=== PATIENT | female | born 1960 | race Caucasian/White ===

== ENCOUNTER → 2016-05-31 | Outpatient (REF) | payer OTHER ==
[~2016-05-31] MED LIST: ACET50TA PO; BACL-67 PO; CHILCHW18 PO; GLUCTAB13 PO; TIZA4CAP3 PO; VITA200019 PO; VITATAB21 PO; [UNRECOGNIZED DRUG - CODE] PO
== END ==
LOC: M LAB REF 12:14
PROVIDERS: ATTEND Surgery
DX: B07.9 Viral wart, unspecified (principal)

== ENCOUNTER → 2017-02-14 | Outpatient (CLI) | payer OTHER ==
[~2017-02-14] MED LIST changes: -BACL-67 PO; +BACL1TAB9 PO
--- NOTE | 2017-02-14 10:31 | REPMRS ---
Patient History The patient states she had a clinical breast exam in 01/2017. Patient is postmenopausal and is nulliparous. No known family history of cancer. Took hormonal contraceptives for 12 years beginning at age 40. Digital Woman Screen Mammo: February 14, 2017 - Exam #: [id number] Bilateral CC and MLO view(s) were taken. Technologist: Melody Malhotra, Technologist Prior study comparison: December 20, 2015, digital woman screen mammo performed at [facility] to [facility]. November 02, 2014, digital woman screen mammo performed at [facility] to [facility]. FINDINGS: There are scattered fibroglandular densities. There has been no change in the appearance of the mammogram from the prior studies. There is a mild amount of residual fibroglandular tissue which is fairly symmetric. There is no interval development of dominant mass, architectural distortion, or clustered microcalcification suggestive of malignancy. ASSESSMENT: BI-RADS/ACR category 1 mammogram. Negative. Recommendation Routine screening mammogram in 1 year (for women over age 40). This mammogram was interpreted with the aid of an FDA-approved computer-aided dectection system. Electronically Signed By: Mack Salas MD 02/14/17 [id number]
== END ==
LOC: M WHC 07:58
PROVIDERS: ATTEND Nurse Practitioner Family
DX: Z12.31 Encounter for screening mammogram for malignant neoplasm of breast (principal); Z78.0 Asymptomatic menopausal state; Z92.0 Personal history of contraception

== ENCOUNTER → 2018-02-14 | Outpatient (CLI) | payer OTHER ==
[~2018-02-14] MED LIST changes: +TIZA4CAP PO; -TIZA4CAP3 PO
--- NOTE | 2018-02-14 15:55 | REPMRS ---
Patient History The patient states she had a clinical breast exam in 02/11 No known family history of cancer. Took hormonal contraceptives for 12 years beginning at age 40. Digital Woman Screen Mammo: February 14, 2018 - Exam #: [id number] Bilateral CC and MLO view(s) were taken. Technologist: Malissa Estrada, Technologist Prior study comparison: February 14, 2017, digital woman screen mammo performed at [facility]. December 20, 2015, digital woman screen mammo performed at [facility]. November 02, 2014, digital woman screen mammo performed at [facility]. FINDINGS: There are scattered fibroglandular densities. There has been no change in the appearance of the mammogram from the prior studies. There is a mild amount of scattered fibroglandular density which is fairly symmetric. There is no interval development of dominant mass, architectural distortion, or clustered microcalcification suggestive of malignancy. 3-D tomosynthesis shows no additional findings. Assessment: BI-RADS/ACR category 1 mammogram. Negative. Recommendation Routine screening mammogram of both breasts in 1 year (for women over age 40). This patient's Lifetime Breast Cancer RIsk is estimated at 13.4 %. This mammogram was interpreted with the aid of an FDA-approved computer-aided dectection system. Electronically Signed By: Daniel Coreas MD 02/14/18 [id number]
== END ==
LOC: M WHC 13:21
PROVIDERS: ATTEND Nurse Practitioner Family
DX: Z12.31 Encounter for screening mammogram for malignant neoplasm of breast (principal); Z92.0 Personal history of contraception

== ENCOUNTER → 2018-02-14 | Outpatient (REF) | payer OTHER ==
[2018-02-21 14:14] LABS: HPV HYBRID CAPTURE II Positive (Negative)
== END ==
LOC: M SFHCWAGY 13:54
PROVIDERS: ATTEND Nurse Practitioner Family
DX: Z12.4 Encounter for screening for malignant neoplasm of cervix (principal)

== ENCOUNTER → 2018-03-10 | Outpatient (REF) | payer OTHER | LOC: M SFHCWAGY 15:07 | PROVIDERS: ATTEND Nurse Practitioner Women's Health | DX: R87.810 Cervical high risk human papillomavirus (HPV) DNA test positive (principal); R87.612 Low grade squamous intraepithelial lesion on cytologic smear of cervix (LGSIL) ==

== ENCOUNTER → 2019-03-18 | Outpatient (CLI) | payer OTHER ==
[~2019-03-18] MED LIST changes: -ACET50TA PO; +MAPA500T17 PO
--- NOTE | 2019-03-18 16:43 | REPMRS ---
Patient History The patient states she had a clinical breast exam in 02/2019. Patient is postmenopausal and is nulliparous. Family history of breast cancer at age 79 in mother. Took hormonal contraceptives for 12 years beginning at age 40. Digital Woman Screen Mammo: March 18, 2019 - Exam #: [id number] Bilateral CC and MLO view(s) were taken. Technologist: Melody Malhotra, Technologist Prior study comparison: February 14, 2018, bilateral digital woman screen mammo performed at [facility]. February 14, 2017, digital woman screen mammo performed at [facility]. December 20, 2015, digital woman screen mammo performed at [facility]. FINDINGS: There are scattered fibroglandular densities. There has been no change in the appearance of the mammogram from the prior studies. There is a mild amount of scattered fibroglandular density which is fairly symmetric. There is no interval development of dominant mass, architectural distortion, or grouped microcalcification suggestive of malignancy. 3-D tomosynthesis shows no additional findings. Assessment: BI-RADS/ACR category 1 mammogram. Negative Mammogram. Recommendation Breast MRI of both breasts in 6 months. Routine screening mammogram of both breasts in 1 year (for women over age 40). This patient's Lifetime Breast Cancer Risk is estimated at 23.9 %. Annual screening Breast MRI scanniing is recommended for patient's whose lifetime risk assessment is over 20%. This mammogram was interpreted with the aid of an FDA-approved computer-aided dectection system. Electronically Signed By: Daniel Coreas MD 03/18/19 [id number]
== END ==
LOC: M WHC 11:18
PROVIDERS: ATTEND Nurse Practitioner Family
DX: Z01.419 Encounter for gynecological examination (general) (routine) without abnormal findings (principal)

== ENCOUNTER → 2019-03-18 | Outpatient (REF) | payer OTHER | LOC: M SFHCWAGY 13:35 | PROVIDERS: ATTEND Nurse Practitioner Family | DX: Z12.4 Encounter for screening for malignant neoplasm of cervix (principal) ==

== ENCOUNTER → 2019-03-27 | Outpatient (REF) | payer OTHER | LOC: M PLALAB 14:07 | PROVIDERS: ATTEND Family Medicine | DX: N90.89 Other specified noninflammatory disorders of vulva and perineum (principal) ==

== ENCOUNTER → 2020-03-11 | Outpatient (REF) | payer OTHER | LOC: M SFHCWAGY 13:30 | PROVIDERS: ATTEND Nurse Practitioner Family | DX: Z01.419 Encounter for gynecological examination (general) (routine) without abnormal findings (principal) ==

== ENCOUNTER → 2020-03-11 | Outpatient (CLI) | payer OTHER ==
--- NOTE | 2020-03-11 09:43 | REPMRS ---
Patient History The patient states she had a clinical breast exam in 2020. Family history of breast cancer at age 79 in mother. Took hormonal contraceptives for 12 years beginning at age 40. 3D TOMOSYNTHESIS WAS PERFORMED. Volpara breast density b. Digital Woman Screen Mammo: March 11, 2020 - Exam #: [id number] Bilateral CC and MLO view(s) were taken. Technologist: Alison Ayala, Technologist Prior study comparison: March 18, 2019, bilateral digital woman screen mammo performed at [facility]. February 14, 2018, bilateral digital woman screen mammo performed at [facility]. FINDINGS: There are scattered fibroglandular densities. There has been no change in the appearance of the mammogram from the prior studies. There is a mild amount of residual fibroglandular tissue which is fairly symmetric. There is no interval development of dominant mass, architectural distortion, or clustered microcalcification suggestive of malignancy. Assessment: BI-RADS/ACR category 1 mammogram. Negative Mammogram. Recommendation Routine screening mammogram in 1 year (for women over age 40). This mammogram was interpreted with the aid of an FDA-approved computer-aided dectection system. THE LIFETIME RISK OF BREAST CANCER IS 23.3%, THEREFORE SUPPLEMENTAL SCREENING MRI OF THE BREASTS IS RECOMMENDED IN 6 MONTHS. Electronically Signed By: Mack Salas MD 03/11/20 [id number]
== END ==
LOC: M WHC 08:28
PROVIDERS: ATTEND Nurse Practitioner Family
DX: Z12.31 Encounter for screening mammogram for malignant neoplasm of breast (principal); Z80.3 Family history of malignant neoplasm of breast; Z92.0 Personal history of contraception

== ENCOUNTER → 2021-04-10 | Outpatient (REF) | payer OTHER | LOC: M PLALAB 08:12 | PROVIDERS: ATTEND Advanced Practice Midwife | DX: Z01.419 Encounter for gynecological examination (general) (routine) without abnormal findings (principal); Z77.9 Other contact with and (suspected) exposures hazardous to health; Z12.4 Encounter for screening for malignant neoplasm of cervix ==

== ENCOUNTER → 2021-04-10 | Outpatient (CLI) | payer OTHER, MEDICAID | LOC: M WHC 09:29 | PROVIDERS: ATTEND Advanced Practice Midwife | DX: Z12.31 Encounter for screening mammogram for malignant neoplasm of breast (principal) ==

== ENCOUNTER → 2022-08-07 | Outpatient (CLI) | payer OTHER, MEDICAID | LOC: M WUC 09:14 | PROVIDERS: ATTEND Nurse Practitioner Adult Health | DX: R05.3 Chronic cough (principal) ==

== ENCOUNTER → 2022-10-09 | Outpatient (CLI) | payer OTHER | LOC: M WHC 15:40 | PROVIDERS: ATTEND Advanced Practice Midwife | DX: Z12.31 Encounter for screening mammogram for malignant neoplasm of breast (principal) ==

== ENCOUNTER → 2022-10-09 | Outpatient (REF) | payer OTHER | LOC: M SFHCWAGY 17:30 | PROVIDERS: ATTEND Advanced Practice Midwife | DX: Z12.4 Encounter for screening for malignant neoplasm of cervix (principal) ==

== ENCOUNTER → 2023-11-04 | Outpatient (CLI) | payer OTHER | LOC: M WHC 09:31 | PROVIDERS: ATTEND Advanced Practice Midwife | DX: Z12.31 Encounter for screening mammogram for malignant neoplasm of breast (principal); R92.313 Mammographic fatty tissue density, bilateral breasts ==

== ENCOUNTER → 2023-11-04 | Outpatient (REF) | payer OTHER ==
[2023-11-06 18:59] LABS: HPV APTIMA Not Detected (Not Detected)
== END ==
LOC: M SFHCWAGY 12:59
PROVIDERS: ATTEND Advanced Practice Midwife
DX: Z12.4 Encounter for screening for malignant neoplasm of cervix (principal); Z77.9 Other contact with and (suspected) exposures hazardous to health

== ENCOUNTER 2024-01-07 10:24 | Emergency (ER) | payer OTHER ==
[~2024-01-07] VITALS: Ht 160 cm; Wt 61.8 kg
[2024-01-07] MEDS ORDERED: CETI-24 PO (10:58)
[2024-01-07] MEDS ORDERED: SIMV40TA20 PO (10:58)
[2024-01-07] MEDS ORDERED: AMIT25TA19 PO (10:58)
[2024-01-07 12:24] LABS: BASO # 0.1 10^3/uL (0.0-0.2); BASO % 0.6 % (0.0-1.0); EOS # 0.1 10^3/uL (0.0-0.5); HEMATOCRIT 40.6 % (36.0-47.0); HEMOGLOBIN 13.2 g/dl (12.0-15.5); LYMPH # 2.9 10^3/uL (1.5-5.0); LYMPH % 19.6 % (24.0-44.0); MEAN CORPUSCULAR HEMOGLOBIN 29.6 pg (27.0-33.0); MEAN CORPUSCULAR HGB CONC 32.5 g/dl (32.0-36.5); MONO # 1.1 10^3/uL (0.0-0.8); MONO % 7.5 % (2.0-8.0); NEUTROPHILS # 10.3 10^3/uL (1.5-8.5); NEUTROPHILS % 70.9 % (36.0-66.0); PLATELET COUNT, AUTOMATED 300 10^3/uL (150-450); RED BLOOD COUNT 4.46 10^6/uL (4.00-5.40); WHITE BLOOD COUNT 14.6 10^3/uL (4.0-10.0)
[2024-01-07 12:30] LABS: ERYTHROCYTE SEDIMENTATION RATE 19 mm/hr (0-30)
[2024-01-07 12:49] LABS: BLOOD UREA NITROGEN 15 MG/DL (9-23); CALCIUM LEVEL 9.5 MG/DL (8.3-10.6); CARBON DIOXIDE LEVEL 29 MMOL/L (20-31); CHLORIDE LEVEL 106 MMOL/L (98-107); CREATININE FOR GFR 0.58 MG/DL (0.55-1.30); GLOMERULAR FILTRATION RATE > 60.0 (>45); GLUCOSE, FASTING 117 MG/DL (74-106); POTASSIUM SERUM 4.3 MMOL/L (3.5-5.1); SODIUM LEVEL 141 MMOL/L (136-145)
[2024-01-07] MEDS ORDERED: AMPICILLIN SOD/SULBACTAM SOD 3 GM in DEXTROSE 5% (D5W) ADV/MINI-BAG 50 ML IV ONE (15:40)
[2024-01-07] MEDS: AMPICILLIN SOD/SULBACTAM SOD 3 GM in SODIUM CHLORIDE 0.9% 100ML ADD 100 ML IV ONE (16:09)
[2024-01-07] MEDS: BOOSTRIX VACCINE (TETANUS/DIPHTH/ACEL. PERTUSSIS) 0.5ML SYR IM ONE (16:14)
[2024-01-07] MEDS ORDERED: AMOX875T2 PO (16:47)
[2024-01-07 17:04] VITALS: BP 127/60; TEMP 98.5; O2SAT 96
[2024-01-08] MEDS ORDERED: B-11TAB PO (20:56)
[2024-01-08] MEDS ORDERED: THERTAB19 PO (20:56)
[2024-01-08] MEDS ORDERED: D3 H2000 PO (20:56)
[2024-01-08] MEDS ORDERED: OMEG10002 PO (20:56)
== END 2024-01-07 17:06 | disposition home or self-care (01) ==
LOC: M ED 10:24
DX: L03.114 Cellulitis of left upper limb (principal); S61.452A Open bite of left hand, initial encounter; S61.451A Open bite of right hand, initial encounter; Y92.019 Unspecified place in single-family (private) house as the place of occurrence of the external cause; Y93.9 Activity, unspecified; Y99.9 Unspecified external cause status; W55.03XA Scratched by cat, initial encounter; J45.909 Unspecified asthma, uncomplicated; F12.10 Cannabis abuse, uncomplicated; F10.10 Alcohol abuse, uncomplicated; Z23 Encounter for immunization; Z88.8 Allergy status to other drugs, medicaments and biological substances; Z79.2 Long term (current) use of antibiotics; Z79.810 Long term (current) use of selective estrogen receptor modulators (SERMs); Z79.899 Other long term (current) drug therapy
CPT/HCPCS: 80048; 85025; 85652; 86140; 87040; 90471; 90715; 96374; 99284; J0295

== ENCOUNTER 2024-01-08 18:09 | Observation (INO) | payer OTHER ==
[~2024-01-08] VITALS: Ht 160 cm; Wt 61.1 kg
[~2024-01-08 18:09] MED LIST changes: +AMIT25TA19 PO; +AMOX875T2 PO; +CETI-24 PO; +SIMV40TA20 PO
[2024-01-08 19:08] LABS: BASO # 0.1 10^3/uL (0.0-0.2); BASO % 0.7 % (0.0-1.0); EOS # 0.2 10^3/uL (0.0-0.5); EOS % 1.6 % (0.0-3.0); HEMATOCRIT 40.7 % (36.0-47.0); HEMOGLOBIN 13.4 g/dl (12.0-15.5); LYMPH # 2.5 10^3/uL (1.5-5.0); MEAN CORPUSCULAR HGB CONC 32.9 g/dl (32.0-36.5); MEAN CORPUSCULAR VOLUME 91.3 fl (80.0-96.0); MONO % 8.7 % (2.0-8.0); NEUTROPHILS # 7.9 10^3/uL (1.5-8.5); NEUTROPHILS % 67.7 % (36.0-66.0); PLATELET COUNT, AUTOMATED 320 10^3/uL (150-450); RED BLOOD COUNT 4.46 10^6/uL (4.00-5.40); WHITE BLOOD COUNT 11.6 10^3/uL (4.0-10.0)
[2024-01-08] MEDS ORDERED: AMPICILLIN SOD/SULBACTAM SOD 3 GM in DEXTROSE 5% (D5W) ADV/MINI-BAG 50 ML IV ONE (19:10)
[2024-01-08 19:12] LABS: ERYTHROCYTE SEDIMENTATION RATE 40 mm/hr (0-30)
[2024-01-08 19:16] LABS: BLOOD UREA NITROGEN 12 MG/DL (9-23); CALCIUM LEVEL 9.2 MG/DL (8.3-10.6); CARBON DIOXIDE LEVEL 27 MMOL/L (20-31); CHLORIDE LEVEL 108 MMOL/L (98-107); CREATININE FOR GFR 0.63 MG/DL (0.55-1.30); GLOMERULAR FILTRATION RATE > 60.0 (>45); GLUCOSE, FASTING 153 MG/DL (74-106); POTASSIUM SERUM 4.1 MMOL/L (3.5-5.1); SODIUM LEVEL 142 MMOL/L (136-145)
[2024-01-08] MEDS: AMPICILLIN SOD/SULBACTAM SOD 3 GM in SODIUM CHLORIDE 0.9% 100ML ADD 100 ML IV ONE (19:58)
[2024-01-08] MEDS ORDERED: OMEG10002 PO (20:56)
[2024-01-08] MEDS ORDERED: B-11TAB PO (20:56)
[2024-01-08] MEDS ORDERED: D3 H2000 PO (20:56)
[2024-01-08] MEDS ORDERED: THERTAB19 PO (20:56)
[2024-01-08] MEDS ORDERED: HOME MED LIST COMPLETE! XX SCH (21:00)
[2024-01-08] MEDS: OMEGA-3 1000MG CAPSULE PO SCH (21:00)
[2024-01-08] MEDS ORDERED: MOM 30ML SUSPENSION UDC PO PRN (21:35)
[2024-01-08 22:10] VITALS: BP 134/84; TEMP 97.7; O2SAT 97
[2024-01-08] MEDS: CETIRIZINE (ZyrTEC) 10 MG TAB PO SCH (22:18)
[2024-01-08] MEDS: SIMVASTATIN 40 MG TAB PO SCH (22:18)
[2024-01-08] MEDS: THIAMINE 100 MG TAB PO SCH (22:18)
[2024-01-08] MEDS: BACLOFEN 10 MG TAB PO PRN (22:53)
[2024-01-08] MEDS: AMITRIPTYLINE 25MG TABLET PO SCH (22:53)
[2024-01-09] VITALS (9 sets, daily range): BP systolic 118–138; BP diastolic 71–86; TEMP 97.5–98.1; O2SAT 92–97
[2024-01-09] MEDS: AMPICILLIN SOD/SULBACTAM SOD 1.5 GM in DEXTROSE 5% (D5W) ADV/MINI-BAG 50 ML IV SCH (01:49)
[2024-01-09 07:05] LABS: HEMATOCRIT 39.4 % (36.0-47.0); HEMOGLOBIN 12.9 g/dl (12.0-15.5); MEAN CORPUSCULAR HEMOGLOBIN 29.8 pg (27.0-33.0); MEAN CORPUSCULAR HGB CONC 32.7 g/dl (32.0-36.5); PLATELET COUNT, AUTOMATED 287 10^3/uL (150-450); RED BLOOD COUNT 4.33 10^6/uL (4.00-5.40); WHITE BLOOD COUNT 10.1 10^3/uL (4.0-10.0)
[2024-01-09 07:27] LABS: BLOOD UREA NITROGEN 15 MG/DL (9-23); CALCIUM LEVEL 9.5 MG/DL (8.3-10.6); CARBON DIOXIDE LEVEL 27 MMOL/L (20-31); CHLORIDE LEVEL 108 MMOL/L (98-107); CREATININE FOR GFR 0.61 MG/DL (0.55-1.30); GLOMERULAR FILTRATION RATE > 60.0 (>45); GLUCOSE, FASTING 112 MG/DL (74-106); SODIUM LEVEL 144 MMOL/L (136-145)
[2024-01-09] MEDS ORDERED: ENOXAPARIN 40MG/0.4ML SYRINGE (J1650 PER 10MG) SC SCH (09:00)
[2024-01-09] MEDS: ACETAMINOPHEN 325 MG TAB PO PRN (20:16)
[2024-01-10 01:15] VITALS: BP 135/85; TEMP 97.9; O2SAT 92
[2024-01-10 06:21] VITALS: BP 130/74; TEMP 97.7; O2SAT 94
[2024-01-10] MEDS: ACETAMINOPHEN 500 MG TAB PO SCH (08:18)
[2024-01-10] MEDS: HYDROMORPHONE HCL 0.5 MG/ 0.5 ML SYRINGE IV ONE (08:22)
[2024-01-10 08:23] LABS: HEMATOCRIT 40.7 % (36.0-47.0); HEMOGLOBIN 13.3 g/dl (12.0-15.5); MEAN CORPUSCULAR HGB CONC 32.7 g/dl (32.0-36.5); MEAN CORPUSCULAR VOLUME 91.9 fl (80.0-96.0); PLATELET COUNT, AUTOMATED 335 10^3/uL (150-450); RED BLOOD COUNT 4.43 10^6/uL (4.00-5.40); WHITE BLOOD COUNT 12.5 10^3/uL (4.0-10.0)
[2024-01-10 10:35] VITALS: BP 134/80; TEMP 97.7; O2SAT 94
[2024-01-10] MEDS ORDERED: BACI1CAP PO (11:47)
[2024-01-10] MEDS ORDERED: AMOX875T2 PO (11:47)
[2024-01-10] MEDS ORDERED: ACET-683 PO (11:48)
[2024-01-10] MEDS ORDERED: TRAM50TA2 PO (11:53)
[2024-01-10] MEDS: traMADol 50 MG TAB PO SCH (12:00)
[2024-01-10 12:22] VITALS: BP 142/72; TEMP 97.8; O2SAT 94
[2024-01-10] MEDS: AMPICILLIN SOD/SULBACTAM SOD 3 GM in SODIUM CHLORIDE 0.9% 100ML ADD 100 ML IV SCH (12:22)
== END 2024-01-10 13:41 | disposition home or self-care (01) ==
LOC: M ED 18:09 → M ED INP 18:10 → M MS5PR 22:50
PROVIDERS: ADMIT Internal Medicine; ATTEND Internal Medicine
DX: L03.114 Cellulitis of left upper limb (principal); A28.0 Pasteurellosis; D72.829 Elevated white blood cell count, unspecified; W55.01XA Bitten by cat, initial encounter; Y92.017 Garden or yard in single-family (private) house as the place of occurrence of the external cause; Y93.9 Activity, unspecified; Y99.9 Unspecified external cause status; M25.511 Pain in right shoulder; M25.512 Pain in left shoulder; M50.30 Other cervical disc degeneration, unspecified cervical region; Z98.890 Other specified postprocedural states; Z87.891 Personal history of nicotine dependence; Z82.49 Family history of ischemic heart disease and other diseases of the circulatory system; Z80.7 Family history of other malignant neoplasms of lymphoid, hematopoietic and related tissues; Z82.41 Family history of sudden cardiac death; Z82.69 Family history of other diseases of the musculoskeletal system and connective tissue; Z80.3 Family history of malignant neoplasm of breast; Z88.6 Allergy status to analgesic agent; Z79.899 Other long term (current) drug therapy; Z79.01 Long term (current) use of anticoagulants
CPT/HCPCS: 11042; 36415; 71045; 73130; 80048; 85025; 85027; 85652; 86140; 87040; 87070; 87075; 87077; 87186; 87205; 93005; 93041; 96365; 96366; 96375; 96376; 97165; 99285; J0295; J1171

== ENCOUNTER → 2024-11-16 | Outpatient (CLI) | payer OTHER ==
[~2024-11-16] MED LIST changes: +ACET-683 PO; +B-11TAB PO; +BACI1CAP PO; +D3 H2000 PO; +OMEG10002 PO; +THERTAB19 PO; +TRAM50TA2 PO
== END ==
LOC: M WHC 13:58
DX: Z12.31 Encounter for screening mammogram for malignant neoplasm of breast (principal); R92.313 Mammographic fatty tissue density, bilateral breasts

== ENCOUNTER → 2025-01-05 | Outpatient (REF) | payer OTHER ==
[2025-01-07 14:32] LABS: HPV APTIMA Not Detected (Not Detected)
== END ==
LOC: M PLALAB 15:48
PROVIDERS: ATTEND Physician Assistant
DX: Z12.4 Encounter for screening for malignant neoplasm of cervix (principal)

== ENCOUNTER → 2025-01-18 | Outpatient (CLI) | payer OTHER | LOC: M WHC 14:34 | PROVIDERS: ATTEND Physician Assistant | DX: Z13.820 Encounter for screening for osteoporosis (principal); M81.0 Age-related osteoporosis without current pathological fracture ==